=== PATIENT | male | born 1975 | race Two or more races ===

== ENCOUNTER 2023-10-20 09:25 | Emergency (ER) | payer SELFPAY ==
--- NOTE | ~2023-10-20 | XR_ITS ---
EXAMINATION: XR KNEE, RIGHT CLINICAL INFORMATION: Knee pain COMPARISON: None available. TECHNIQUE: Four views of the right knee. FINDINGS: No fracture or joint effusion. Alignment is anatomic. Joint spaces are maintained. No abnormal soft tissue calcification. XR/XR knee RT 3V IMPRESSION: Normal right knee.
[2023-10-20 09:53] VITALS: BP 151/94; PULSE 78; RESP 16; TEMP 36.2; O2SAT 98; BMI 33.7
--- NOTE | 2023-10-20 11:14 | ED.LOWEXIN ---
HPI - Extremity Injury (Lower) General Chief Complaint: Extremity Injury, Lower Stated Complaint: R/L Knee Pain Time Seen by Provider: 10/20/23 10:54 Source: patient and maintenance department manager Mode of arrival: ambulatory Limitations: no limitations History of Present Illness HPI Narrative: 47 year old male with no significant pmhx presents to the ED for evaluation of right knee pain x 20 days. Admits to difficulty walking due to pain. Pain is elicited when going from sitting to standing. Denies known injury or trauma. He has been taking ibuprofen at home without relief. Last dose at 0700 this morning. 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 He has not been medically evaluated for this issue over the last 20 days. Denies history of injury to the knee. Denies hx of gout. Denies fever, chills, nausea or vomiting, rashes. No recent travel or long car rides. cut off [employer] utilized throughout visit to communicate with patient. Related Data Previous Rx's ?Medication ?Instructions ?Recorded naproxen 500 mg tablet 500 mg PO Q8-12H PRN pain (scale 10/20/23 score 4-6) #20 tabs prednisone 50 mg tablet 50 mg PO DAILY 5 days #5 tabs 10/20/23 Allergies Allergy/AdvReac Type Severity Reaction Status Date / Time No Known Allergies Allergy Verified 10/20/23 09:56 Review of Systems Review of Systems: Constitutional: No fever, chills, fatigue, night sweats, weight changes ENT/Mouth: No ear pain, hearing loss, nasal congestion, sinus pain, rhinorrhea, sore throat Eyes: No eye pain, swelling, redness, vision changes, discharge Cardio: No chest pain, palpitations, ANN, orthopnea, peripheral edema Pulm: No SOB, cough, sputum, wheezing, dyspnea, hemoptysis GI: No nausea, vomiting, hematemesis, abdominal pain, diarrhea, constipation, hematochezia, melena : No irregular bleeding, dysuria, frequency, urgency, hesitancy, hematuria, flank pain, urinary flow changes, urinary incontinence or retention MSK: No back pain, neck pain, joint pain, myalgias Skin: No lesions, rashes, +right knee pain Neuro: No weakness, numbness, paresthesias, LOC, dizziness, headache Psych: No anxiety/panic, depression, SI/HI, AH/VH All other systems reviewed and are negative. [facility] Past Medical History Attestation statement: The following information was validated with the patient. Source: old records reviewed and nursing notes reviewed Social History Social History Advance Directives: No Physical Exam Vital Signs: Vital Signs: Last Vital Signs Temp 97.1 F 10/20/23 09:53 Pulse 78 10/20/23 09:53 Resp 16 10/20/23 09:53 BP 151/94 H 10/20/23 09:53 Pulse Ox 98 10/20/23 09:53 O2 Del Method Room Air 10/20/23 09:53 BMI result Body Mass Index 33.7 Vital signs stable Const: General: cooperative, healthy appearing, comfortable and no acute distress Orientation/consciousness: patient oriented x3 Limitations: no limitations HEENT: Head: Yes normal to inspection, Yes normocephalic and Yes atraumatic Eyes: General: appearance normal, both eyes and all related structures Conjunctivae: conjunctivae normal Sclerae: sclerae normal Pupils: Equal, round and reactive pupils present Neck: Neck: Yes normal visual inspection and Yes full ROM Resp: Effort & Inspection: normal respiratory effort Auscultation: clear to auscultation bilaterally Cardio: Rate: regular rate Rhythm: regular rhythm Skin: General skin exam: no rashes or lesions noted Neuro: General: patient oriented x3, gait normal and moves all extremities Cranial nerves: Yes Equal, round and reactive pupils present Extrem: Other: + right knee without joint effusion, erythema or overlying cellulitis. no overlying warmth. no palpable deformities. full ROM intact to right knee. strength 5/5 intact throughout. sensation intact to light touch. 2+ popliteal, dp/pt pulses. cap refill <2 seconds. no calf tenderness. no pitting edema. + negative anterior and posterior drawer test. Negative valgus/varus. No high riding patella. Negative Pinto sign. General: Yes normal to inspection Course Course Course Narrative: 1136-- x-ray right knee does not demonstrate acute fracture or dislocation. Patient likely has arthritis. There is no concern for ligament or tendon injury at this time. He is ambulating with steady gait. Will apply Armando wrap. Toradol given. Prednisone and naproxen sent to pharmacy for pain. Advised to follow-up with PCP. Patient has remained stable throughout ED visit today. Discussed worrisome signs and symptoms and when to return to the ED. All questions answered at this time. Patient is agreeable with disposition and stable for discharge. Medical Decision Making Medical Decision Making [facility] Narrative: 47 year old male with no significant pmhx presents to the ED for evaluation of right knee pain x 20 days. Patient hypertensive, vitals otherwise WNL. He is nontoxic-appearing and in no acute distress. Ambulating with steady gait. Right knee does not exhibit overlying skin changes or obvious deformity. No palpable warmth or deformity. Nontender to palpation. No high-riding patella. Full ROM intact with flexion and extension. 2+ popliteal, DP/PT pulse. No calf tenderness. negative anterior and posterior drawer test. Negative valgus/varus. No high riding patella. Negative Pinto sign. Differential diagnosis includes contusion, arthritis, MSK sprain/strain. Unlikely fracture, dislocation or Ahuja cyst. No concern for neurovascular compromise, compartment syndrome, threat to limb, DVT, gout, pseudogout. Plan for x-rays, pain control and re-evaluation. Differential Diagnosis Differential Diagnoses: The differential diagnosis associated with the presentation includes As above Admission/Observation Not indicated Independent Interpretation I performed an independent interpretation of an: Plain X-Ray Interpretation: X-ray right knee does not demonstrate fracture, agree with radiologist's interpretation. Radiology Impression Discussion of test interpretation with radiology: I have reviewed the radiologist's reading. Radiologist Impression: EXAMINATION: XR KNEE, RIGHT CLINICAL INFORMATION: Knee pain COMPARISON: None available. TECHNIQUE: Four views of the right knee. FINDINGS: No fracture or joint effusion. Alignment is anatomic. Joint spaces are maintained. No abnormal soft tissue calcification. XR/XR knee RT 3V IMPRESSION: Normal right knee. External Record Review External record reviewed: Inpatient record, Office record, Outpatient record, Prior outpatient labs, Prior outpatient radiology, Primary care record and Outside ED record Prescription Management I considered prescription management with: Pain Medication Procedures Orthopedic Splinting/Casting Injury #1: Side: right Lower Extremity Injury Location: knee Lower Extremity Immobilizer: Armando wrap Critical Care Time Critical Care Time Critical Care Time: No Discharge Plan Discharge Clinical Impression: Arthritis of right knee Patient Disposition: Home, Self-Care Instructions: Osteoarthritis (ED) Additional Instructions: Your x-rays today do not demonstrate fracture. Your symptoms are likely due to arthritis. You have been provided with an Armando wrap to help with compression. Prednisone as a steroid that has been sent to your pharmacy. Take this for the next 5 days as prescribed. Incorporate RICE treatment (rest, ice, compression, elevation) to help with pain/ discomfort. Naproxen as a pain medication that has been sent to your pharmacy. Take this as needed for pain/discomfort. Do not take this with other NSAIDs such as ibuprofen as this can increase risk of GI bleeding. Please follow-up with your PCP this week. Return with new or worsening symptoms. In the case of an emergency call 911. Prescriptions: New prednisone 50 mg tablet 50 mg PO DAILY 5 Days Qty: 5 0RF naproxen 500 mg tablet 500 mg PO Q8-12H PRN (Reason: pain (scale score 4-6)) Qty: 20 0RF [place] [facility] [place] [facility] [place] [facility] [place] [facility] [place] [place] [facility] [place] Group] Stand Alone Forms: Work/School Release Print Language: Tamazight
[2023-10-20] MEDS: Ketorolac Tromethamine 30 MG/ML VIAL IM (11:40)
--- NOTE | 2023-10-20 11:56 | PC.NURSE ---
pt medicated for pain per order, sharon wrap rle
[2023-10-20 11:57] VITALS: BP 136/86; PULSE 72; RESP 18; TEMP 36.7; O2SAT 98
== END 2023-10-20 11:57 | disposition home or self-care (01) ==
PROVIDERS: Emergency Provider Emergency Medicine
DX: M17.11 Unilateral primary osteoarthritis, right knee (principal)
CPT/HCPCS: 73562; 96372; 99283; 99284; J1885